=== PATIENT | male | born 1970 | race Caucasian/White ===

== ENCOUNTER 2018-10-10 23:30 | Emergency (ER) | payer OTHER ==
[~2018-10-10] VITALS: Ht 162.6 cm; Wt 90.7 kg
[~2018-10-10 23:30] MED LIST: AZIT250 PO; Amoxicillin500 MG PO; BP MED; CEPH500 PO; HYDACE5 PO; IBUP600 PO; LANS15EC; LEVSOD100; METF500C PO; PROACE100 PO; THYROID MED; Zofran Odt4 MG SL
[2018-10-11] MEDS ORDERED: CEPH500 PO (00:23)
== END 2018-10-11 00:30 | disposition home or self-care (01) ==
LOC: ER 23:30
DX: S61.313A Laceration without foreign body of left middle finger with damage to nail, initial encounter (principal); W26.9XXA Contact with unspecified sharp object(s), initial encounter; Y99.0 Civilian activity done for income or pay; Z79.84 Long term (current) use of oral hypoglycemic drugs; E11.9 Type 2 diabetes mellitus without complications; I10 Essential (primary) hypertension
CPT/HCPCS: 90471; 90714; 99282-25

== ENCOUNTER 2020-11-28 08:32 | Day surgery (SDC) | payer OTHER ==
[~2020-11-28] VITALS: Ht 162.6 cm; Wt 94.6 kg
--- NOTE | 2020-11-28 08:51 | NUR ---
History, Chart, Medications and Allergies reviewed before start of procedure. Patient confirms NPO status and agrees with scheduled surgery. Reports taking all of colon prep with clear results. Patient States Post-Procedure ride home has been arranged with his friend, Jennifer Butt.
[2020-11-28] MEDS ORDERED: LEVOTHYROXINE PO (08:54)
[2020-11-28] MEDS ORDERED: LISI20 PO (08:55)
--- NOTE | 2020-11-28 09:46 | NUR ---
11/28/20 0946 Cary Vázquez History, Chart, Medications and Allergies reviewed before start of procedure. Patient confirms NPO status and agrees with scheduled surgery. 3-LEAD EKG REVIEWED WITH PHYSICIAN PRIOR TO START OF PROCEDURE. MONITOR INTACT WITH CONTINUOUS PULSE OXIMETRY AND INTERMITTENT BP. PATIENT DETERMINED TO BE ASA APPROPRIATE FOR PROPOFOL SEDATION PRIOR TO START OF PROCEDURE BY .
--- NOTE | 2020-11-28 10:47 | NUR ---
Discharge instructions reviewed with patient. Patient verbalizes understanding. Copy given to patient to take home. Discharged via wheelchair to private car for ride home.
== END 2020-11-28 10:50 | disposition home or self-care (01) ==
LOC: ORSCMMR 08:32 → ORD 09:30 → ORSCMMR 09:30
PROVIDERS: Internal Medicine Gastroenterology
PROC: 0DJD8ZZ Inspection of Lower Intestinal Tract, Via Natural or Artificial Opening Endoscopic (ICD-10-PCS; principal; 2020-11-28 09:30)
DX: R10.33 Periumbilical pain (principal); E11.9 Type 2 diabetes mellitus without complications; E03.9 Hypothyroidism, unspecified; E78.00 Pure hypercholesterolemia, unspecified; I10 Essential (primary) hypertension; Z79.84 Long term (current) use of oral hypoglycemic drugs; Z79.899 Other long term (current) drug therapy
CPT/HCPCS: 82947; J2704; J7120